=== PATIENT | female | born 1995 | race Caucasian/White ===

== ENCOUNTER 2021-12-11 12:52 | Emergency (ER) | payer OTHER ==
[~2021-12-11] VITALS: Ht 167.6 cm; Wt 63.5 kg
[~2021-12-11 12:52] MED LIST: CATAPRES0.1 MG PO; CLON1 PO; GABA100 PO; METO25 PO; PROM25 PO; TRAZ50 PO
[2021-12-11] MEDS ORDERED: GABA300 PO (13:40)
[2021-12-11] MEDS ORDERED: LEVE500 PO (15:11)
== END 2021-12-11 15:38 | disposition home or self-care (01) ==
LOC: ER 12:52
DX: R56.9 Unspecified convulsions (principal); F11.10 Opioid abuse, uncomplicated; F17.290 Nicotine dependence, other tobacco product, uncomplicated; Z88.6 Allergy status to analgesic agent; Z88.8 Allergy status to other drugs, medicaments and biological substances; Z79.899 Other long term (current) drug therapy
CPT/HCPCS: 82947; 93005; 93010; 99284-25; A9270